=== PATIENT | female | born 1995 | race Caucasian/White ===

== ENCOUNTER 2018-10-11 07:08 | Emergency (ER) | payer SELFPAY ==
[2018-10-11] MEDS ORDERED: Rabies VIRUS VACCINE (Imovax)* 2.5 UNIT/ML 1 ML IM ONE (07:22)
[2018-10-11 07:29] VITALS: BP 106/71
[2018-10-11] MEDS ORDERED: Rabies Immune Globulin/PF 1ML* 1 ML/300 UNITS VIAL IM ONE (07:36)
[2018-10-11] MEDS ORDERED: Tetan/Diph/Pertus SYR(Tdap)* 0.5 ML SYR(BOOSTRIX) use SYR IM ONE (07:37)
[2018-10-11] MEDS ORDERED: Rabies VIRUS VACCINE (RabAvert)* 2.5 UNITS VIAL IM ONE (08:00)
--- NOTE | 2018-10-11 08:27 | UC ---
Bite Injury/Animal HPI - HPI Summary HPI Summary: WOKE UP WITH A BAT FLYING AROUND HER BEDROOM 2 DAYS AGO. IS HERE FOR RABIES POSTEXPOSURE PROPHYLAXIS. UNKNOWN DATE OF LAST TETANUS. NO CLEAR BITE WOUND. - History of Current Complaint Chief Complaint: UCGeneralIllness Stated Complaint: RABIES Time Seen by Provider: 10/11/18 07:10 Hx Obtained From: Patient Severity Currently: None Pain Intensity: 0 Pain Scale Used: 0-10 Numeric Type of Bite: Wild Animal Has Animal Been Immunized?: No Aggravating Factor(s): Nothing Alleviating Factor(s): Nothing Associated Signs And Symptoms: Positive: Negative Animal Available for Observation: No Animal Control Notified: Yes - Allergies/Home Medications Allergies/Adverse Reactions: Allergies Allergy/AdvReac Type Severity Reaction Status Date / Time contrast dye Allergy Hives Uncoded 10/11/18 07:27 Home Medications: Home Medications Norethindrone-E.estradiol-Iron [Elias Fe 1.5-30 Tablet] 1 tab PO DAILY 10/11/18 [History Confirmed 10/11/18] PMH/Surg Hx/FS Hx/Imm Hx Previously Healthy: Yes - Surgical History Surgical History: None - Family History Known Family History: Positive: Non-Contributory - Social History Alcohol Use: None Substance Use Type: None Smoking Status (MU): Never Smoked Tobacco Review of Systems All Other Systems Reviewed And Are Negative: Yes Constitutional: Positive: Negative Skin: Positive: Negative Respiratory: Positive: Negative Cardiovascular: Positive: Negative Gastrointestinal: Positive: Negative Physical Exam Triage Information Reviewed: Yes Appearance: Well-Appearing, No Pain Distress, Well-Nourished Vital Signs: Initial Vital Signs Temp 98.4 F 10/11/18 07:22 Pulse 79 10/11/18 07:22 Resp 18 10/11/18 07:22 BP 106/71 10/11/18 07:22 Pulse Ox 99 10/11/18 07:22 Vital Signs Reviewed: Yes Eyes: Positive: Conjunctiva Clear ENT: Positive: Hearing grossly normal Neck: Positive: Supple Respiratory: Positive: No respiratory distress, No accessory muscle use Cardiovascular: Positive: Pulses Normal Abdomen Description: Positive: Soft Musculoskeletal: Positive: No Edema Neurological: Positive: Alert Psychological: Positive: Age Appropriate Behavior Skin: Negative: Rashes Bite Injury Course/Dx - Course Course Of Treatment: RABIES IMMUNOGLOBULIN ADMINISTERED BY RN. FIRST RABIES VACCINE ADMINISTERED BY RN. TDAP BOOSTED. PATIENT WILL FOLLOW-UP IN 3 DAYS IN [place] FOR HER SECOND AND THE RABIES VACCINATION SERIES. - Differential Dx/Diagnosis Provider Diagnosis: Rabies, need for prophylactic vaccination against Discharge - Sign-Out/Discharge Documenting (check all that apply): Patient Departure All imaging exams completed and their final reports reviewed: No Studies - Discharge Plan Condition: Stable Disposition: HOME Patient Education Materials: Rabies (ED), Rabies Vaccine (ED) Referrals: No Primary Care Phys,NOPCP [Primary Care Provider] - Additional Instructions: YOU RECEIVED THE RABIES IMMUNOGLOBULIN AND YOUR FIRST DOSE OF THE RABIES VACCINE TODAY. FOLLOW-UP IN 3 DAYS FOR YOUR NEXT RABIES VACCINE. Rabies Exposure You may have been exposed to the rabies virus. This is a serious problem. To prevent rabies, treatment must begin early. If we wait until you develop symptoms of rabies, it's too late. Rabies is a deadly infection. The rabies virus is found in an infected animal's saliva. After a bite, it grows in the muscle, then travels up the nerves into the brain. Using a series of shots, we can keep the virus from growing in your body. We clean the wound thoroughly. We usually inject rabies immune globulin ( antibodies against rabies) into the wound area. Another shot of immune globulin is given to treat the entire body. You'll need immunization against rabies. (If you're already immunized against rabies, you may need only a booster shot.) After the first shot, there are booster shots over the two weeks following exposure. These are usually done on day 3, 7, and 14. The repeat doses can also be given through the Health Department or by special arrangement with your doctor. The vaccine is 100% effective if started within 10 days, and also is highly effective if started beyond the 10 day recommendation. Because the incubation period for rabies is very long, up to one year, don't assume that you are safe if 10 days have already elapsed since your exposure. Bats are a special case, because they can carry rabies without becoming ill. Their mouths are so small that they can bite a sleeping person without the person being aware of the bite. That's why the health department may recommend rabies shots for a person who wakes up to discover a bat in the room. Ibuprofen or acetaminophen can be used for aching and swelling at the injection site. Call the doctor or return if you develop increasing pain, fever , chills, or spreading redness, or if you become short of breath or faint. TETANUS IMMUNIZATION GIVEN (TDAP): You have been given an immunization against tetanus. Please record this in your records. In general, a booster is needed only once every 10 years. The tetanus shot protects against tetanus or "lockjaw," which is a complication of certain wound infections (the tetanus shot cannot protect against the actual infection). The immunization site may become warm and red due to local reaction. If this occurs, apply warm compresses and take aspirin or ibuprofen to reduce inflammation and discomfort. Return for evaluation if the reaction becomes severe. - Billing Disposition and Condition Condition: STABLE Disposition: Home
== END 2018-10-11 08:20 | disposition home or self-care (01) ==
LOC: UCEAST 07:08
DX: Z20.3 Contact with and (suspected) exposure to rabies (principal); Z29.14 Encounter for prophylactic rabies immune globulin
CPT/HCPCS: 90375; 90471; 90472; 90675; 90715; 96372; 99201; G0463